=== PATIENT | female | born 1945 | race African-American/Black ===

== ENCOUNTER 2019-03-18 14:37 | Emergency (ER) | payer OTHER ==
[~2019-03-18] VITALS: Ht 154.9 cm; Wt 72.6 kg
[~2019-03-18 14:37] MED LIST: ACETAMINOPHEN-1 EAC1 ORAL; AZITHROMYCIN250 MG ORAL; HYDROCODON-ACE1 EA15 ORAL
[2019-03-18 14:44] VITALS: BP 128/82
--- NOTE | 2019-03-18 15:30 | NUR ---
ED Nurse Note: Patient presents to ER due to right wrist and elbow pain for the past few days. Patient reports no injury. Patient able to wiggle right fingers, + cap refill < 3 sec. Reports no numbness or tingling in fingers or the affected arm. Patient sitting in chair without facial grimacing or guarding.
--- NOTE | 2019-03-18 16:50 | Diagnostic Imaging Report ---
. Indications: Pain, trauma Technique: Two views of the right forearm Comparison: None Findings: There is a slightly impacted fracture of the radial neck. No other acute fractures are demonstrated. No radiopaque foreign body Impression: Positive for radial neck fracture Findings discussed by phone previously with Dr. Landeros
--- NOTE | 2019-03-18 16:51 | Diagnostic Imaging Report ---
Clinical Indication:Right wrist pain Technique: 3 views of the ] wrist Comparison: None Findings: No acute fractures. No dislocations. The joint spaces are preserved. Questionable small cyst seen in the scaphoid lower pole. Impression: No acute process
--- NOTE | 2019-03-18 17:36 | Emergency Room Report ---
History of Present Illness General Chief Complaint: Upper Extremity Injury Source: Patient Present Illness HPI Patient states that a day and a half ago in the middle of the night she rolled over and then felt a popping sensation in her right forearm. She states that since that time she has had pain in her right wrist and right forearm. Pain is worse with movement. She denies any other injury or complaints. Allergies: Coded Allergies: PENICILLINS (Unverified Allergy, Unknown, 07/21/14) Patient History Past Medical History: see triage record, GERD Past Surgical History: other - knee repl Social History: Denies: smoking, alcohol use, drug use Reviewed Nursing Documentation: PMH: Agreed; PSxH: Agreed Nursing Documentation-PMH Past Medical History: No Stated History Hx Gastrointestinal Problems: No - Hiatal hernia surgery 06/2013 Review of Systems All Other Systems: negative except mentioned in HPI Physical Exam Vital Signs Date Time Temp Pulse Resp B/P (MAP) Pulse Ox O2 Delivery O2 Flow Rate FiO2 03/18/19 14:44 97.9 92 19 128/82 (97) 98 Room Air Sp02 EP Interpretation: reviewed, normal General Appearance: no apparent distress, alert, GCS 15, non-toxic Head: normocephalic, atraumatic Eyes: bilateral eye normal inspection, bilateral eye PERRL ENT: hearing grossly normal, normal pharynx, no angioedema, normal voice Neck: full range of motion, supple/symm/no masses Respiratory: no respiratory distress, no retraction, no accessory muscle use, speaking full sentences Cardiovascular #2: 2+ radial (R) Rectal: deferred Musculoskeletal: back normal, normal range of motion, gait/station normal, tender - TTP at the elbow and wrist. +ecchymosis at proximal wrist. Neurologic: alert, motor strength/tone normal, oriented x3, sensory intact, responsive, speech normal Psychiatric: judgement/insight normal, memory normal, mood/affect normal, no suicidal/homicidal ideation Procedures Splinting Splinting : Consent: Verbal Location: R. arm Hand-Made Type: plaster Splint: Long ARM Pre-Proc Neuro Vasc Exam: normal Post-Proc Neuro Vasc Exam: normal Patient Tolerated: Well Complications: None Progress Sling also provided. Medical Decision Making Diagnostic Impression: Primary Impression: Fracture of radial neck, closed ER Course This patient has a fracture of the radial neck of the right radius. She was placed in a long-arm splint and instructed to follow-up closely with her orthopedic surgeon. She states she does have an orthopedic surgeon she can see because of her knee replacement. She was given a sling. There is no evidence of any other injuries. She is given close return precautions and follow-up instructions. Other X-Ray Diagnostic Results Other X-Ray Diagnostic Results : X-Ray ordered: R. wrist, R. forearm # of Views/Limited Vs Complete: Complete Indication: Pain EP Interpretation: Yes Interpretation: other - R. radial neck fracture Impression: Other - See above. See EMR for official reports. Electronically Signed by: Alma Rosa Sanchez DO. Last Vital Signs Date Time Temp Pulse Resp B/P (MAP) Pulse Ox O2 Delivery O2 Flow Rate FiO2 03/18/19 14:44 97.9 92 19 128/82 (97) 98 Room Air Status: improved Disposition: HOME, SELF-CARE Condition: Improved Referrals: NON PHYSICIAN (PCP) Alma Rosa Sanchez DO Mar 18, 2019 17:36
[2019-03-18] MEDS ORDERED: IBUPROFEN600 MG ORAL (17:45)
--- NOTE | 2019-03-18 18:00 | NUR ---
ED Nurse Note: Patient is being discharged from medical care. Dr. Sanchez was at bedside and rechecked splint on the right arm. +pulse, able to wiggle her right fingers and identify which finger is pressed post splint. D/C instruction given to patient. Patient states she will f/u with her orthopedic MD. All questions were answered. Patient ambulated out with steady gait, accompanied by friend.
== END 2019-03-18 18:00 | disposition home or self-care (01) ==
LOC: EMR 15:50
DX: S52.131A Displaced fracture of neck of right radius, initial encounter for closed fracture (principal); K21.9 Gastro-esophageal reflux disease without esophagitis; X50.1XXA Overexertion from prolonged static or awkward postures, initial encounter; Y93.89 Activity, other specified; Y92.013 Bedroom of single-family (private) house as the place of occurrence of the external cause; Z88.0 Allergy status to penicillin; Z96.659 Presence of unspecified artificial knee joint
CPT/HCPCS: 29105; 99283